=== PATIENT | male | born 1945 | race Caucasian/White ===

== ENCOUNTER 2017-07-05 19:09 | Inpatient (IN) | payer MEDICARE, OTHER ==
[~2017-07-05] VITALS: Ht 177.8 cm; Wt 98.7 kg
[2017-07-05 20:26] LABS: INR 0.94 (0.9-1.15); Partial Thromboplastin Time 23.2 sec (22.64-33.71); Prothrombin Time 10.2 sec (9.37-12.3)
[2017-07-05 20:29] LABS: Basophils # (auto) 0.2 uL; Eosinophils # (auto) 0.6 uL; Eosinophils % (auto) 3.8 % (0.0-7.0); Hematocrit 33.3 % (41.0-53.0); Hemoglobin 10.4 g/dL (13.5-17.5); Lymphocytes # (auto) 2.6 uL; Lymphocytes % (auto) 17.7 % (10.0-50.0); Mean Corpuscular Hemoglobin 28.2 pg (28.0-32.0); Mean Corpuscular Hgb Conc. 31.2 g/dL (32.0-36.0); Mean Corpuscular Volume 90.3 fL (80.0-100.0); Monocytes # (auto) 1.3 uL; Monocytes % (auto) 8.8 % (0.0-12.0); Neutrophils # (auto) 10.1 uL; Neutrophils % (auto) 68.7 % (37.0-80.0); Platelet Count (auto) 271 10^3/uL (140-450); Red Cell Distribution Width 14.3 % (11.8-14.3); White Blood Cell 14.6 10^3/uL (4.4-10.8)
[2017-07-05 20:32] LABS: Albumin 3.1 g/dL (3.4-5.0); BUN/Creatinine Ratio 56.8; Calcium 10.1 mg/dL (8.5-10.1); Potassium 4.6 mmol/L (3.5-5.1)
[2017-07-05 20:37] LABS: Bilirubin, Total 0.3 mg/dL (0.2-1.0); Total Protein 6.8 g/dL (6.4-8.2)
[2017-07-05] MEDS ORDERED: PANTOPRAZOLE 40 MG/10 ML VIAL IV ONE (22:00)
[2017-07-05] MEDS ORDERED: SODIUM CHLORIDE 0.9% 1,000 ML IV ONE (22:00)
[2017-07-05] MEDS ORDERED: HYDROcodone-ACET 5/325MG TAB PO PRN (22:30)
[2017-07-05] MEDS ORDERED: NITROGLYCERIN 0.4 MG SL TAB SL PRN (22:30)
[2017-07-05] MEDS ORDERED: TEMAZEPAM 15 MG CAP PO PRN (22:30)
[2017-07-05] MEDS ORDERED: DEXTROSE (50%) 50ML SYRG IV PRN (22:30)
[2017-07-05] MEDS ORDERED: ONDANSETRON HCL 4 MG/2 ML VIAL IV PRN (22:30)
[2017-07-05] MEDS ORDERED: ACETAMINOPHEN 325 MG TAB PO PRN (22:30)
[2017-07-06] MEDS: ACCU-CHEK COMFORT CURVE STRIP VI SCH ×4 (01:00→16:40)
[2017-07-06] MEDS: InsuLIN REG 1unit/0.01ml Soln (100units/ml) SC SCH ×4 (01:00→16:40)
[2017-07-06] MEDS: SODIUM CHLORIDE 0.9% 1,000 ML IV SCH ×3 (01:03→16:41)
[2017-07-06 01:40] LABS: Urine RBC None Seen /hpf (0 - 3)
[2017-07-06 01:53] LABS: Urine Bilirubin Negative (Negative); Urine Blood Negative /uL (Negative); Urine Color Yellow (Yellow); Urine Glucose Normal (Normal); Urine Ketone Negative (Negative); Urine Nitrite Negative (Negative); Urine Urobilinogen Normal (Negative)
[2017-07-06 02:46] LABS: Basophils # (auto) 0.1 uL; Eosinophils # (auto) 0.4 uL; Eosinophils % (auto) 3.9 % (0.0-7.0); Hematocrit 29.1 % (41.0-53.0); Hemoglobin 9.5 g/dL (13.5-17.5); Lymphocytes # (auto) 2.9 uL; Lymphocytes % (auto) 26.5 % (10.0-50.0); Mean Corpuscular Hemoglobin 28.3 pg (28.0-32.0); Mean Corpuscular Hgb Conc. 32.5 g/dL (32.0-36.0); Mean Corpuscular Volume 87.1 fL (80.0-100.0); Mean Platelet Volume 8.5 fL (6.9-10.8); Monocytes % (auto) 9.4 % (0.0-12.0); Neutrophils # (auto) 6.5 uL; Neutrophils % (auto) 59.2 % (37.0-80.0); Platelet Count (auto) 236 10^3/uL (140-450); Red Cell Distribution Width 14.4 % (11.8-14.3)
[2017-07-06 03:03] LABS: BUN/Creatinine Ratio 55.1; Bilirubin, Total 0.3 mg/dL (0.2-1.0); Calcium 9.1 mg/dL (8.5-10.1); Potassium 4.5 mmol/L (3.5-5.1); Total Protein 5.9 g/dL (6.4-8.2)
[2017-07-06 03:15] VITALS: BP 136/58
[2017-07-06 05:00] VITALS: BP 136/58
[2017-07-06 08:07] LABS: Hematocrit 28.7 % (41.0-53.0); Hemoglobin 9.6 g/dL (13.5-17.5)
[2017-07-06 09:00] VITALS: BP 103/75
[2017-07-06] MEDS: PANTOPRAZOLE 40 MG/10 ML VIAL IV SCH ×2 (10:04→21:30)
[2017-07-06 12:00] VITALS: BP 126/67
[2017-07-06] MEDS: ASPirin 81 mg TAB PO SCH (12:00)
[2017-07-06] MEDS ORDERED: METF-372 PO (13:51)
[2017-07-06] MEDS ORDERED: CLOP75TA28 PO (13:51)
[2017-07-06] MEDS ORDERED: ISOS30TA4 PO (13:51)
[2017-07-06] MEDS ORDERED: LISI-646 PO (13:51)
[2017-07-06] MEDS ORDERED: ATOR1TAB PO (13:51)
[2017-07-06] MEDS ORDERED: ASPI-231 PO (13:51)
[2017-07-06] MEDS ORDERED: CARV6.2551 PO (13:51)
[2017-07-06] MEDS ORDERED: LIRA18IN2 SUBCUT (13:51)
[2017-07-06] MEDS ORDERED: INS7030I SC ×2 (13:51)
[2017-07-06 17:00] VITALS: BP 126/58
[2017-07-06 22:00] VITALS: BP 130/59
[2017-07-06] MEDS ORDERED: LORazepam 2MG/ML-1ML VIAL IV PRN (23:15)
[2017-07-07] MEDS: ACCU-CHEK COMFORT CURVE STRIP VI SCH ×5 (00:13→22:53)
[2017-07-07] MEDS: InsuLIN REG 1unit/0.01ml Soln (100units/ml) SC SCH ×5 (00:14→22:50)
[2017-07-07 05:00] VITALS: BP 122/47
[2017-07-07 06:39] LABS: Basophils # (auto) 0.1 uL; Basophils % (auto) 1.7 % (0.0-2.0); Eosinophils # (auto) 0.4 uL; Eosinophils % (auto) 5.9 % (0.0-7.0); Hematocrit 27.3 % (41.0-53.0); Hemoglobin 9.3 g/dL (13.5-17.5); Lymphocytes % (auto) 27.2 % (10.0-50.0); Mean Corpuscular Hemoglobin 29.3 pg (28.0-32.0); Mean Corpuscular Hgb Conc. 33.9 g/dL (32.0-36.0); Mean Corpuscular Volume 86.4 fL (80.0-100.0); Mean Platelet Volume 8.9 fL (6.9-10.8); Monocytes # (auto) 0.7 uL; Monocytes % (auto) 9.7 % (0.0-12.0); Neutrophils # (auto) 4.1 uL; Neutrophils % (auto) 55.5 % (37.0-80.0); Nucleated Red Blood Cells % 0.1 %; Platelet Count (auto) 235 10^3/uL (140-450); Red Cell Distribution Width 13.8 % (11.8-14.3); White Blood Cell 7.3 10^3/uL (4.4-10.8)
[2017-07-07 06:57] LABS: BUN/Creatinine Ratio 28.4; Calcium 8.7 mg/dL (8.5-10.1); Potassium 4.5 mmol/L (3.5-5.1)
[2017-07-07 09:00] VITALS: BP 132/67
[2017-07-07] MEDS ORDERED: ASPirin 81 mg TAB PO SCH (10:00)
[2017-07-07] MEDS: ASPirin 81 mg TAB PO SCH (10:18)
[2017-07-07] MEDS: PANTOPRAZOLE 40 MG/10 ML VIAL IV SCH ×2 (10:18→22:15)
[2017-07-07 13:00] VITALS: BP 152/64
[2017-07-07] MEDS: SODIUM CHLORIDE 0.9% 1,000 ML IV SCH (16:50)
[2017-07-07 17:00] VITALS: BP 141/64
[2017-07-07 23:33] VITALS: BP 137/68
[2017-07-08] MEDS: SODIUM CHLORIDE 0.9% 1,000 ML IV SCH ×2 (03:36→16:56)
[2017-07-08 04:35] VITALS: BP 124/68
[2017-07-08] MEDS: ACCU-CHEK COMFORT CURVE STRIP VI SCH ×4 (06:00→21:30)
[2017-07-08 07:01] LABS: Basophils # (auto) 0.1 uL; Basophils % (auto) 1.3 % (0.0-2.0); Eosinophils # (auto) 0.5 uL; Eosinophils % (auto) 6.3 % (0.0-7.0); Hematocrit 27.6 % (41.0-53.0); Hemoglobin 9.4 g/dL (13.5-17.5); Lymphocytes # (auto) 2.2 uL; Lymphocytes % (auto) 25.6 % (10.0-50.0); Mean Corpuscular Hemoglobin 29.6 pg (28.0-32.0); Mean Corpuscular Hgb Conc. 34.1 g/dL (32.0-36.0); Mean Corpuscular Volume 86.7 fL (80.0-100.0); Mean Platelet Volume 9.2 fL (6.9-10.8); Monocytes # (auto) 1.1 uL; Monocytes % (auto) 12.8 % (0.0-12.0); Neutrophils # (auto) 4.5 uL; Nucleated Red Blood Cells % 0.1 %; Platelet Count (auto) 234 10^3/uL (140-450); White Blood Cell 8.4 10^3/uL (4.4-10.8)
[2017-07-08 07:06] LABS: INR 0.98 (0.9-1.15); Prothrombin Time 10.7 sec (9.37-12.3)
[2017-07-08] MEDS: InsuLIN REG 1unit/0.01ml Soln (100units/ml) SC SCH ×4 (07:25→21:40)
[2017-07-08 09:00] VITALS: BP 137/65
[2017-07-08] MEDS: PANTOPRAZOLE 40 MG/10 ML VIAL IV SCH ×2 (09:53→21:27)
[2017-07-08] MEDS: ASPirin 81 mg TAB PO SCH (09:54)
[2017-07-08 13:00] VITALS: BP_SYST 68
[2017-07-08 17:00] VITALS: BP 133/78
[2017-07-08 21:36] VITALS: BP 136/60
[2017-07-09 05:00] VITALS: BP 127/61
[2017-07-09] MEDS: SODIUM CHLORIDE 0.9% 1,000 ML IV SCH (05:52)
[2017-07-09] MEDS: InsuLIN REG 1unit/0.01ml Soln (100units/ml) SC SCH ×2 (06:00→12:18)
[2017-07-09] MEDS: ACCU-CHEK COMFORT CURVE STRIP VI SCH ×2 (06:00→12:17)
[2017-07-09 06:58] LABS: Basophils # (auto) 0.1 uL; Basophils % (auto) 1.1 % (0.0-2.0); Eosinophils # (auto) 0.8 uL; Eosinophils % (auto) 7.7 % (0.0-7.0); Hemoglobin 9.7 g/dL (13.5-17.5); Lymphocytes # (auto) 2.1 uL; Lymphocytes % (auto) 21.1 % (10.0-50.0); Mean Corpuscular Hemoglobin 29.1 pg (28.0-32.0); Mean Corpuscular Hgb Conc. 33.4 g/dL (32.0-36.0); Mean Corpuscular Volume 87.3 fL (80.0-100.0); Monocytes % (auto) 10.1 % (0.0-12.0); Neutrophils # (auto) 5.9 uL; Platelet Count (auto) 268 10^3/uL (140-450); Red Cell Distribution Width 14.2 % (11.8-14.3); White Blood Cell 9.9 10^3/uL (4.4-10.8)
[2017-07-09 07:09] LABS: Potassium 4.3 mmol/L (3.5-5.1)
[2017-07-09 07:11] LABS: INR 0.98 (0.9-1.15); Prothrombin Time 10.7 sec (9.37-12.3)
[2017-07-09 07:19] LABS: Albumin 3.3 g/dL (3.4-5.0); BUN/Creatinine Ratio 21.1; Calcium 9.3 mg/dL (8.5-10.1); Magnesium 1.8 mg/dL (1.6-2.6)
[2017-07-09 07:24] LABS: Bilirubin, Total 0.3 mg/dL (0.2-1.0); Total Protein 6.9 g/dL (6.4-8.2)
[2017-07-09] MEDS ORDERED: MIDAZOLAM HCL 5 MG/ML-1ML VIAL ONE (08:06)
[2017-07-09] MEDS ORDERED: LIDOCAINE VISCOUS 2% 15ML UD ONE ×2 (08:06→09:04)
[2017-07-09] MEDS ORDERED: NALOXONE HCL 0.4 MG/ML VIAL ONE (08:06)
[2017-07-09] MEDS ORDERED: FLUMAZENIL 0.1 MG/ML INJ 10ML MDV IV ONE (08:06)
[2017-07-09] MEDS ORDERED: diphenhdrAMINE HCL 50 MG/1 ML VL ONE (08:06)
[2017-07-09] MEDS ORDERED: fentaNYL CITRATE 100 MCG/2 ML VL ONE (08:07)
[2017-07-09 09:00] VITALS: BP 154/68
[2017-07-09] MEDS: ASPirin 81 mg TAB PO SCH (10:00)
[2017-07-09] MEDS ORDERED: PANTOPRAZOLE 40 MG TAB PO SCH (10:00)
[2017-07-09 13:00] VITALS: BP 139/65
== END 2017-07-09 13:19 | disposition home or self-care (01) | DRG 377 ==
LOC: ER 19:09 → TELE 19:10 → TELE-CENTR 07-06 03:00
PROVIDERS: ADMIT Nurse Practitioner; ATTEND Internal Medicine
PROC: 0DJ08ZZ Inspection of Upper Intestinal Tract, Via Natural or Artificial Opening Endoscopic (ICD-10-PCS; principal; 2017-07-09 09:05)
DX: K29.71 Gastritis, unspecified, with bleeding (principal); I21.A1 Myocardial infarction type 2; E11.65 Type 2 diabetes mellitus with hyperglycemia; E87.1 Hypo-osmolality and hyponatremia; K25.4 Chronic or unspecified gastric ulcer with hemorrhage; D64.9 Anemia, unspecified; D72.829 Elevated white blood cell count, unspecified; E66.9 Obesity, unspecified; Z68.31 Body mass index [BMI] 31.0-31.9, adult; E78.5 Hyperlipidemia, unspecified; E86.1 Hypovolemia; I10 Essential (primary) hypertension; G47.00 Insomnia, unspecified; E86.0 Dehydration; I25.10 Atherosclerotic heart disease of native coronary artery without angina pectoris; K57.30 Diverticulosis of large intestine without perforation or abscess without bleeding; N40.0 Benign prostatic hyperplasia without lower urinary tract symptoms; Z79.02 Long term (current) use of antithrombotics/antiplatelets; Z79.82 Long term (current) use of aspirin; Z82.49 Family history of ischemic heart disease and other diseases of the circulatory system; Z83.3 Family history of diabetes mellitus; Z90.49 Acquired absence of other specified parts of digestive tract; Z98.61 Coronary angioplasty status; Z79.899 Other long term (current) drug therapy
CPT/HCPCS: 36415; 70450; 70551; 71010; 74176; 80048; 80053; 81001; 82962; 83036; 83735; 84484; 85014; 85018; 85025; 85610; 85730; 86677; 86850; 86900; 86901; 93005; 93306; 93886; 95819; 96374; C9113; J1815; J2250